=== PATIENT | male | born 1960 ===

== ENCOUNTER 2019-01-31 00:25 | Emergency (ER) | payer SELFPAY ==
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
[2019-01-31 00:46] VITALS: BP 140/98; PULSE 66; TEMP 98.2; BMI 28.0
[2019-01-31] MEDS ORDERED: IBUPROFEN 600 MG TABLET (FP) PO ONE ×2 (00:46→00:50)
[2019-01-31] MEDS ORDERED: LIDOCAINE 5% TOPICAL PATCH TP ONE (00:46)
[2019-01-31] MEDS ORDERED: CYCLOBENZAPRINE HCL 5 MG TABLET PO ONE (00:46)
[2019-01-31] MEDS ORDERED: CYCLOBENZAPRINE HCL 10 MG TABLET (FP) ONE (00:50)
[2019-01-31] MEDS ORDERED: LIDOCAINE 5% TOPICAL PATCH ONE (00:50)
== END 2019-01-31 01:26 | disposition home or self-care (01) ==
LOC: FER 00:25
DX: Z04.1 Encounter for examination and observation following transport accident (principal); M54.5 Low back pain; I10 Essential (primary) hypertension; E78.5 Hyperlipidemia, unspecified; V43.52XA Car driver injured in collision with other type car in traffic accident, initial encounter; Y93.89 Activity, other specified; Y92.410 Unspecified street and highway as the place of occurrence of the external cause; Z88.0 Allergy status to penicillin
CPT/HCPCS: 99282-25